=== PATIENT | male | born 1940 | race African-American/Black ===

== ENCOUNTER 2024-07-28 12:32 | Emergency (ER) | payer MEDICARE, MEDICAID ==
[~2024-07-28] VITALS: Ht 172.7 cm; Wt 60.0 kg
[~2024-07-28 12:32] MED LIST: DUTA0.5C2; METF-415; METR500T PO; SITA1TAB4; SULF1TAB48 PO; TAMS-11; URSO500T10; VALS320T2
[2024-07-28 12:36] VITALS: O2SAT 95
[2024-07-28] MEDS: ACETAMINOPHEN 500MG TABLET PO ONE (14:19)
[2024-07-28] MEDS ORDERED: NAPR-1176 MT (17:15)
[2024-07-28] MEDS ORDERED: LIDO700A15 TP (17:15)
[2024-07-28 17:43] VITALS: BP 147/68; PULSE 81; RESP 18; TEMP 36.39180; O2SAT 96
== END 2024-07-28 17:51 | disposition home or self-care (01) ==
LOC: ER 13:55
DX: G89.29 Other chronic pain (principal); M54.50 Low back pain, unspecified; E11.9 Type 2 diabetes mellitus without complications; E78.00 Pure hypercholesterolemia, unspecified; I10 Essential (primary) hypertension; Z79.899 Other long term (current) drug therapy; Z98.84 Bariatric surgery status
CPT/HCPCS: 72131; 72192; 99284